=== PATIENT | female | born 1960 | race African-American/Black ===

== ENCOUNTER 2023-11-29 17:29 | Emergency (ER) | payer OTHER ==
[2023-11-29 17:52] VITALS: BP 120/64; PULSE 65; RESP 18; TEMP 98.2; BMI 25.0
[2023-11-29] MEDS ORDERED: IBUPROFEN 400 MG TABLET (FP) PO ONE (17:54)
[2023-11-29] MEDS: IBUPROFEN 400 MG TABLET (FP) PO ONE (18:08)
== END 2023-11-29 18:45 | disposition home or self-care (01) ==
LOC: FER 17:29
PROC: 0YQQXZZ Repair Left 1st Toe, External Approach (ICD-10-PCS; principal; 2023-11-29)
DX: S91.112A Laceration without foreign body of left great toe without damage to nail, initial encounter (principal); W01.198A Fall on same level from slipping, tripping and stumbling with subsequent striking against other object, initial encounter
CPT/HCPCS: 99283-25

== ENCOUNTER 2023-11-30 12:21 | Emergency (ER) | payer OTHER ==
[2023-11-30 12:39] VITALS: BP 103/69; PULSE 61; RESP 15; TEMP 97.9; BMI 24.7
== END 2023-11-30 15:02 | disposition home or self-care (01) ==
LOC: FER 12:21
DX: S91.102D Unspecified open wound of left great toe without damage to nail, subsequent encounter (principal); Z48.01 Encounter for change or removal of surgical wound dressing; W01.0XXD Fall on same level from slipping, tripping and stumbling without subsequent striking against object, subsequent encounter
CPT/HCPCS: 73630-TC-LT; 99283-25